=== PATIENT | male | born 1985 | race Caucasian/White ===

== ENCOUNTER 2017-12-07 20:53 | Emergency (ER) | payer SELFPAY ==
[2017-12-08] MEDS: KETOROLAC TROMETHAMINE 10 MG TAB PO (02:00)
[2017-12-08] MEDS: ONDANSETRON 4 MG ORAL DISINTEGRATING TAB (Q0162 PER 1MG) PO (02:00)
== END 2017-12-08 02:03 | disposition home or self-care (01) ==
LOC: M ED 20:53
DX: S09.90XA Unspecified injury of head, initial encounter (principal); F41.0 Panic disorder [episodic paroxysmal anxiety]; W01.198A Fall on same level from slipping, tripping and stumbling with subsequent striking against other object, initial encounter; Y92.89 Other specified places as the place of occurrence of the external cause; R00.1 Bradycardia, unspecified; R51 Headache; Z87.442 Personal history of urinary calculi; F17.200 Nicotine dependence, unspecified, uncomplicated
CPT/HCPCS: Q0162